=== PATIENT | female | born 1970 | race Caucasian/White ===

== ENCOUNTER → 2017-11-26 | Outpatient (CLI) | payer OTHER ==
[~2017-11-26] MED LIST: ASPI81CH PO; ATOR10; FENO67; HYDACE5 PO; LEVSOD100; LEVSOD112 PO; LOVA20 PO; Lisinopril2.5 MG; METF500 PO; PARO10 PO; RAMI1.25; RANI150 PO; WARF2.5
== END | disposition home or self-care (01) ==
LOC: LAB SRC 06:35
DX: E11.9 Type 2 diabetes mellitus without complications (principal)
CPT/HCPCS: 82043

== ENCOUNTER 2022-01-05 11:15 | Inpatient (IN) | payer OTHER ==
[~2022-01-05] VITALS: Ht 134.6 cm; Wt 63.2 kg
[~2022-01-05 11:15] MED LIST changes: -Lisinopril2.5 MG; +Lisinopril2.5 MG PO
[2022-01-05] MEDS ORDERED: FENO160 PO (11:51)
[2022-01-05] MEDS ORDERED: EUTHYROX50 MC1 PO (11:51)
[2022-01-05 12:08] LABS: BASOPHILS PERCENT AUTO 1 % (0-2); EOSINOPHILS ABSOLUTE AUTO 0.03 K/mm3 (0.00-0.68); EOSINOPHILS PERCENT AUTO 0 % (0-6); Hematocrit 39.7 % (33.0-51.0); Hemoglobin 12.9 g/dL (11.5-16.0); IMMATURE GRAN ABSOLUTE AUTO 0.16 K/mm3 (0.00-0.10); IMMATURE GRAN PERCENT AUTO 2 % (0-1); LYMPHOCYTES ABSOLUTE AUTO 1.23 K/mm3 (0.84-5.20); LYMPHOCYTES PERCENT AUTO 15 % (21-46); MONOCYTES ABSOLUTE AUTO 0.84 K/mm3 (0.16-1.47); MONOCYTES PERCENT AUTO 10 % (4-13); Mean Corpuscular HGB 32.3 pg (26.0-34.0); Mean Corpuscular HGB Conc 32.5 g/dL (31.5-36.5); Mean Corpuscular Volume 100 fL (80-100); Mean Platelet Volume 10.8 fL (9.1-12.4); NEUTROPHILS ABSOLUTE AUTO 6.08 K/mm3 (1.96-9.15); NEUTROPHILS PERCENT AUTO 72 % (41-73); Platelet Count 218 K/mm3 (150-400); RDW Coefficient Variation 13.4 % (11.7-14.2); RDW Standard Deviation 49.2 fL (35.1-46.3); Red Blood Cell Count 3.99 M/mm3 (3.80-5.20); White Blood Cell Count 8.44 K/mm3 (4.00-11.30)
[2022-01-05 12:36] LABS: Albumin, Blood 3.4 g/dL (3.4-5.0); Albumin/Globulin Ratio 0.7 (0.8-1.8); Bilirubin, Total 0.5 mg/dL (0.1-1.0); Bun/Creatinine Ratio 16.2 (12.0-20.0); Calcium, Blood 9.3 mg/dL (8.5-10.1); Creatinine, Blood 0.99 mg/dL (0.40-1.00); Globulin, Blood 4.7 g/dL (2.2-4.0); Potassium, Blood 4.1 mmol/L (3.5-5.5); Total Protein, Blood 8.1 g/dL (6.4-8.2)
[2022-01-05 13:15] LABS: Influenza A, PCR NEGATIVE (NEGATIVE); Influenza B, PCR NEGATIVE (NEGATIVE); Resp Syncytial Virus, PCR NEGATIVE (NEGATIVE); SARS-Cov-2 (COVID-19) PCR, MMC NEGATIVE (NEGATIVE)
[2022-01-05 14:38] LABS: Anti-Xa UFH, PHA Monitoring <0.10 IU/mL; International Normalized Ratio 1.13; Prothrombin Time Results 11.8 Sec (9.7-11.5)
[2022-01-05 15:01] LABS: CHOL/HDL RATIO 3.7; Cholesterol 174 mg/dL (50-200); HDL Cholesterol 47 mg/dL (>39); LDL/HDL RATIO 2.2; Low Density Lipoprotein Chol 104 mg/dL (0-110); Triglycerides 113 mg/dL (30-160); Very Low Density Lipoprot Chol 22 mg/dL (6-32)
--- NOTE | 2022-01-05 17:32 | NUR ---
SHIFT SUMMARY; ASSUMED CARE FROM ED. BROUGHT TO UNIT VIA GURNEY, SLID TO BED WITH SLIDER SHEET. HEPARIN INFUSING AT 15UNITS/HR ON ARRIVAL. LASIX GIVEN PRIOR TO ARRIVAL, ATTENDS SOILED HEAVILY IN URINE. MCDANIELS PLACED. SISTER WHO IS CAREGIVER AT BEDSIDE. 4L 02 VIA NC, VSS, HX OF DOWN SYNDROME AND PREVIOUS CVA. RIGHT SIDE DEFICETS FROM THE PREVIOUS CVA. RIGHT LEG WEAK, RIGHT ARM CONTRACTED. ORIENTED TO SELF AND SITUATION. WILL CONTINUE TO MONITOR AND TREAT UNTIL CHANGE OF SHIFT.
[2022-01-05] MEDS ORDERED: THERA-D2000 UNIT PO (19:27)
[2022-01-05] MEDS ORDERED: DOCU100 PO (19:28)
[2022-01-06 03:57] LABS: BASOPHILS PERCENT AUTO 1 % (0-2); EOSINOPHILS PERCENT AUTO 1 % (0-6); Hematocrit 40.3 % (33.0-51.0); Hemoglobin 13.4 g/dL (11.5-16.0); IMMATURE GRAN ABSOLUTE AUTO 0.12 K/mm3 (0.00-0.10); IMMATURE GRAN PERCENT AUTO 1 % (0-1); LYMPHOCYTES ABSOLUTE AUTO 1.18 K/mm3 (0.84-5.20); LYMPHOCYTES PERCENT AUTO 9 % (21-46); MONOCYTES ABSOLUTE AUTO 0.85 K/mm3 (0.16-1.47); MONOCYTES PERCENT AUTO 7 % (4-13); Mean Corpuscular HGB 32.2 pg (26.0-34.0); Mean Corpuscular HGB Conc 33.3 g/dL (31.5-36.5); Mean Corpuscular Volume 97 fL (80-100); Mean Platelet Volume 10.6 fL (9.1-12.4); NEUTROPHILS ABSOLUTE AUTO 10.56 K/mm3 (1.96-9.15); NEUTROPHILS PERCENT AUTO 82 % (41-73); NRBC ABSOLUTE 0.03 K/mm3 (0.00-0.02); NRBC Auto 0.2 /100 WBC (0.0-0.2); Platelet Count 237 K/mm3 (150-400); RDW Coefficient Variation 13.3 % (11.7-14.2); RDW Standard Deviation 47.6 fL (35.1-46.3); Red Blood Cell Count 4.16 M/mm3 (3.80-5.20); White Blood Cell Count 12.91 K/mm3 (4.00-11.30)
[2022-01-06 04:12] LABS: Anti-Xa UFH, PHA Monitoring 0.27 IU/mL
[2022-01-06 04:13] LABS: Bun/Creatinine Ratio 16.1 (12.0-20.0); Calcium, Blood 9.5 mg/dL (8.5-10.1); Creatinine, Blood 1.12 mg/dL (0.40-1.00)
--- NOTE | 2022-01-06 11:03 | NUR ---
HEPARIN DC'D PER ORDERS.
--- NOTE | 2022-01-06 17:48 | NUR ---
SHIFT SUMMARY; ASSUMED CARE AT 0700. SLEEPS MOST OF DAY, ARROUSABLE TO VERBAL STIMULI. ALERT AND ORIENTED TO BASELINE PER SISTER. HX OF DOWNS WITH SLIGHT DEMENTIA. COOPERATIVE WITH CARE. MCDANIELS DRAINING CLEAR YELLOW URINE TO GRAVITY BAG. MOVES MOVES ON GURNEY INDEPENDANTLY. RIGHT HAND CONTRACTOR FROM PREVIOUS CVA. HEPARIN DC'D TODAY, VSS, ECHO COMPLETE. 5L 02 VIA NC TO MAINTAIN SATS IN LOW 90'S. NO ACUTE MEDICAL CHANGES, WILL CONTINUE TO MONITOR AND TREAT UNTIL CHANGE OF SHIFT.
--- NOTE | 2022-01-06 20:34 | NUR ---
PT TO RADIOLOGY FOR CT PE PROTOCOL. 6 LPM NASAL CANNULA VIA O2 TANK. PRE-PROCEDURE ATIVAN ADMINISTERED ORDRED
--- NOTE | 2022-01-07 01:20 | NUR ---
NOTIFIED MD BROWN OF PATIENT'S LOW BLOOD PRESSURES, 70S-80S SYSTOLIC WITH MAPS 54 - 70. PT RECEIVED 80 MG IV LASIX DURING THE DAY, REPORTED POOR PO INTAKE, NET I&Os -1550. PT RECENTLY DIAGNOSED WITH SADDLE PE AND MULTIPLE EMBOLI TO BILATERAL LUNGS PER CT PE PROTOCOL COMPLETED EARLIER THIS SHIFT. HEPARIN DRIP INFUSING ORDERED. PT DOES NOT APPEAR TO BE IN ANY RESPIRATORY DISTRESS, RESTING COMFORTABLY IN BED, BREATHING MUCH LESS LABORED THAN MY ASSESSMENT OF SAME ON THE GARMENT LOOPER OF 01/05/2022. CURRENTLY ON 5 - 6 LPM NASAL CANNULA. ECHO COMPLETED 01/06/22 SHOWED NO EVIDENCE OF PLEURAL EFFUSION, TRIVIAL PERICARDIAL EFFUSION, EF OF 65-70%, MODERATE ENLARGEMENT OF THE RIGHT ATRIUM AND VENTRICLE, AND SOME MILD DIASTOLIC DYSFUNCTION. ORDERS RECEIVED FOR 250 ML BOLUS OF NORMAL SALINE, WIDE OPEN.
[2022-01-07 05:01] LABS: BASOPHILS ABSOLUTE AUTO 0.11 K/mm3 (0.00-0.23); BASOPHILS PERCENT AUTO 1 % (0-2); EOSINOPHILS ABSOLUTE AUTO 0.14 K/mm3 (0.00-0.68); EOSINOPHILS PERCENT AUTO 2 % (0-6); Hematocrit 40.6 % (33.0-51.0); Hemoglobin 13.3 g/dL (11.5-16.0); IMMATURE GRAN ABSOLUTE AUTO 0.12 K/mm3 (0.00-0.10); IMMATURE GRAN PERCENT AUTO 1 % (0-1); LYMPHOCYTES ABSOLUTE AUTO 1.25 K/mm3 (0.84-5.20); LYMPHOCYTES PERCENT AUTO 14 % (21-46); MONOCYTES ABSOLUTE AUTO 0.93 K/mm3 (0.16-1.47); MONOCYTES PERCENT AUTO 10 % (4-13); Mean Corpuscular HGB 32.4 pg (26.0-34.0); Mean Corpuscular HGB Conc 32.8 g/dL (31.5-36.5); Mean Corpuscular Volume 99 fL (80-100); Mean Platelet Volume 10.7 fL (9.1-12.4); NEUTROPHILS ABSOLUTE AUTO 6.48 K/mm3 (1.96-9.15); NEUTROPHILS PERCENT AUTO 72 % (41-73); Platelet Count 230 K/mm3 (150-400); RDW Coefficient Variation 13.4 % (11.7-14.2); RDW Standard Deviation 48.9 fL (35.1-46.3); White Blood Cell Count 9.03 K/mm3 (4.00-11.30)
[2022-01-07 05:21] LABS: Bun/Creatinine Ratio 18.4 (12.0-20.0); Calcium, Blood 9.4 mg/dL (8.5-10.1); Creatinine, Blood 1.03 mg/dL (0.40-1.00); Potassium, Blood 3.6 mmol/L (3.5-5.5)
--- NOTE | 2022-01-07 17:11 | NUR ---
PT BACK FROM HAND SIZER. PT RESPONDING TO VERBAL STIMULI; QUICKLY FALLING BACK TO SLEEP. FLOW STASIS CLOSURE DEVICE IN PLACE. SMALL AMOUNT OF BLOOD NOTED IN GROIN UNDER DRESSING. RIGHT GROIN SITE IS SOFT, NONTENDER, NO BRUISING OR ACTIVE BLEEDING NOTED. WILL CONTINUE TO MONITOR.
--- NOTE | 2022-01-07 17:16 | NUR ---
SHIFT SUMMARY PT RESPONDING TO VERBAL STIMULI, ORIENTED TO SELF AND FAMILY. PT REPOSITIONED FOR COMFORT DURING SHIFT. NO S/SX OF DISTRESS NOTED. SPO2 DROPPED INTO 86-88%, TITRATED FROM 6L O2 VIA NC TO 10L O2 VIA NC. BP SOFT; TELE SR 70-80'S. RIGHT GROIN SITE IN PLACE; SEE PREVIOUS NOTE. OTHER VSS. NO OTHER ACUTE CHANGES NOTED DURING SHIFT. WILL CONTINUE TO MONITOR.
--- NOTE | 2022-01-07 20:38 | NUR ---
CARE ASSUMPTION: RECEIVED REPORT FROM MILKA BACA RN. PATIENT AWAKE IN BED, ANGIO SITE WNL. VERIFIED AND RESTARTED HEPARIN DRIP. SISTER SHMUEL CALLED AND AND WAS UPDATED ON PATIENT'S STATUS. PATIENT SLEPT FOR "TWO AND A HALF DAYS" BUT IS CURRENTLY AWAKE WITH ALL SIDE RAILS UP.
--- NOTE | 2022-01-08 05:33 | NUR ---
SHIFT SUMMARY: PATIENT'S ANGIO SITE WNL - NO TENDERNESS, SWELLING, OR BLEEDING AT SITE AND STRONG DISTAL PULSES. BPS SOFT, O2 SATS 88-97% ON 8L HI-FLOW NC. PATIENT DOES PULL NC OFF OCCASIONALLY, WHICH RESULTS IN MID-80 SATURATIONS. HEPARIN RUNNING PER PHARMACY RATE. WILL CONTINUE TO MONITOR AND REPORT TO ONCOMING RN.
--- NOTE | 2022-01-08 14:49 | NUR ---
Received referral from nurse before and after school daycare worker (Sharlene Milton) on 01/07/2022. Patient is to discharge with orders for home health and elected [facility]. Due to patient's cognitive abilities, contacted patients sister ([address]) at number provided on demographic sheet to further discuss the above. Patient's sister is agreeable to the above. Discussed homebound status definition with patient's sister. Patient's sister verbalized understanding. Discussed what home health is vs what it is not (in home caregivers/housekeeping). Patient's sister verbalized understanding. Discussed the next steps in the process of an initial assessment to determine frequency of visits. Again patient's sister verbalized understanding. Offered a chance for patient's sister to ask questions regarding the above of which there were none. At this time patient has no discharge orders entered. Will continue to monitor and follow for discharge. Yuliana [place] Referral Liaison
--- NOTE | 2022-01-08 16:57 | NUR ---
SHIFT SUMMARY PT RESPONDING TO VERBAL STIMULI THIS AM, MORE AWAKE THIS AFTERNOON. PT ABLE TO HAVE SOME PO INTAKE. NO S/SX OF DISTRESS NOTED, WHEN ASKED, PT DENIES PAIN, NAUSEA AND DIZZINESS. BP SOFT BUT STABLE, HR SINUS 70'S. DR BEATTY TO BEDSIDE THIS AM, REMOVED THE FLOW STATIS CLOSURE DEVICE AND PLACED STERISTRIP. STARTED THIS AM ON 8L O2 VIA NC, TITRATED DOWN T/O SHIFT TO 3L O2 VIA NC. OTHER VSS. NO OTHER ACUTE CHANGES NOTED. WILL CONTINUE TO MONTIOR UNTIL REPORT GIVEN TO ONCOMING RN.
--- NOTE | 2022-01-09 06:03 | NUR ---
ACCURACY EXPERT SUMMARY PT IS ALERT TO SELF AND COMMUNICATES WITH STAFF MAINLY USING YES OR NO TO ANSWER QUESTIONS. O2 SATS >91% ON 1L NC THIS SHIFT ALTHOUGH PT REMAINS TACHYPNEIC. BP SOFT THIS SHIFT BUT STABLE. PT AFEBRILE. PT HAS MCDANIELS CATHETER PRODUCING 300ML DARK ABIGAIL URINE THIS SHIFT. PT SLEEPING COMFORTABLY FOR MAJORITY OF THE SHIFT. PT REPOSITIONED IN BED THROUGHOUT THE SHIFT. WILL REPORT TO ONCOMING RN.
--- NOTE | 2022-01-09 17:02 | NUR ---
SHIFT SUMMARY PT ALERT FOR MAJORITY OF SHIFT, ORIENTED TO PERSON, SURROUNDING, FAMILY AND FOLLOWING DIRECTIIONS. NO S/SX OF DISTRESS NOTED. UP WITH PHYSICAL THERAPY WITH SBA ASSIST, WITH CUSTODIAL SERVICES MANAGER PT 2-3 PERSON ASSIST. PT DENIES PAIN, CHEST PAIN/PRESSURE, SOB, NASUEA AND DIZZINESS. SPO2 >90% T/O SHIFT, TITRATED TO RA. PT BP SOFT THIS AFTERNOON AND EVENING, NOTIFIED DR MAGUIRE, NEW ORDERS FOR BOLUS THIS AFTERNOON, NO NEW ORDERS THIS EVENING. OTHER VSS. NO OTHER ACUTE CHANGES NOTED DURING SHIFT. WILL CONTINUE TO MONITOR.
--- NOTE | 2022-01-10 05:50 | NUR ---
MACHINIST BRAKE SUMMARY PT IS ALERT AND MUCH MORE AWAKE THIS SHIFT COMPARED TO PREVIOUS NIGHT. O2 SATS >90% ON RM AIR HOWEVER THE PT DID REQUIRE 1L NC WHILE ASLEEP FOR O2 SATS >88%. BP WNL AND STABLE THIS SHIFT. PT IRRIATABLE THIS SHIFT AND NONCOMPLIANT WITH CARE SHE FOUGHT REPOSITIONING AND VITAL SIGN CHECKS. PT AWAKE FOR MOST OF THE SHIFT BUT DENYING ANY PAIN OR NAUSEA. WILL REPORT TO ONCOMING RN.
--- NOTE | 2022-01-10 07:59 | NUR ---
Pt is awake, sometimes answers questions, other times she does not. Vital signs checked, noted stable. She was repositioned up in bed upright for breakfast with COLD STORAGE SUPERVISOR assisting her for the meal. She appears cheerful, cooperative, and not anxious.
--- NOTE | 2022-01-10 08:55 | NUR ---
Dr. Reyes here in room, rounded on pt. Pt is eating breakfast, repositioned to high beaulieu's position for better ease of swallowing. Spo2 90% on room air while eating.
--- NOTE | 2022-01-10 11:12 | NUR ---
NOTED while sleeping, continuous oximetry reading 86-88% while on room air. Caregiver present states that she was prescribed a CPAP years ago, but now that she has had a stroke and has dementia she does not tolerate the CPAP mask, neither does she tolerate nasal cannula. However, caregiver also states that the pt has never been presribed any oxygen at home. Intolerance of nasal cannula is her observation of the pt in the past few days while an inpatient. Caregiver states that the pt lived with her mother until the parent , and now pt lives with her sister, and has occasional caregivers for activity. Caregiver also states that the pt had been on coumadin after her stroke, but that for reasons unknown to her it was discontinued by the PCP and the pt was only taking aspirin.
[2022-01-10] MEDS ORDERED: ELIQUIS5 M2 PO (15:12)
[2022-01-10] MEDS ORDERED: ELIQUIS5 M4 PO (15:14)
--- NOTE | 2022-01-10 15:35 | NUR ---
Patient now has discharge orders entered. Gathered all supporting documentation for referral (face sheet, face to face, med list, H&P, and most recent PT assessment) and sent to [facility] for review. No further interventions required. Yuliana [place] Referral Liaison
--- NOTE | 2022-01-10 16:23 | NUR ---
Pt's sister Liberty was educated about the pt's discharge. New medications, instructions, home health following, follow up appointments with PCP, home oxygen and plan for set up once the pt is home. IV was dc'd. Pt was assisted to her own wheelchair by PCU staff, then taken out to private van driven by pt's sister, Liberty.
== END 2022-01-10 16:02 | disposition home health service (06) | DRG 163 ==
LOC: ER 11:15 → PCU 14:47
PROVIDERS: Emergency Medicine; Family Medicine; ADMIT Hospitalist
PROC: 02CR3ZZ Extirpation of Matter from Left Pulmonary Artery, Percutaneous Approach (ICD-10-PCS; principal; 2022-01-08)
PROC: 02CQ3ZZ Extirpation of Matter from Right Pulmonary Artery, Percutaneous Approach (ICD-10-PCS; 2022-01-08)
DX: I26.02 Saddle embolus of pulmonary artery with acute cor pulmonale (principal); J96.01 Acute respiratory failure with hypoxia; G81.91 Hemiplegia, unspecified affecting right dominant side; I82.431 Acute embolism and thrombosis of right popliteal vein; I95.9 Hypotension, unspecified; E03.9 Hypothyroidism, unspecified; E78.5 Hyperlipidemia, unspecified; Z20.822 Contact with and (suspected) exposure to COVID-19; I50.811 Acute right heart failure; F03.90 Unspecified dementia, unspecified severity, without behavioral disturbance, psychotic disturbance, mood disturbance, and anxiety; Q90.9 Down syndrome, unspecified; Z98.890 Other specified postprocedural states; Z79.899 Other long term (current) drug therapy; Z79.890 Hormone replacement therapy; Z79.82 Long term (current) use of aspirin
CPT/HCPCS: 0241U; 36415; 37184; 37185; 71045; 71260; 75743; 75820; 75825; 76937; 80048; 80053; 80061; 83036; 83605; 83880; 84145; 84443; 84484; 85025; 85520; 85610; 85730; 92610; 93005; 93010; 93306; 93970; 94761; 94762; 96365; 96375; 97162; 97166; 97530; 99152; 99153; 99285-25; A9270; C1751; C1769; C1887; C1894; J1644; J1940; J2060; J2250; J3010; J7030; J7040; J7050; J7120; Q9967

== ENCOUNTER 2022-01-30 15:03 | Day surgery (SDC) | payer OTHER ==
[~2022-01-30 15:03] MED LIST changes: +DOCU100 PO; +ELIQUIS5 M2 PO; +ELIQUIS5 M4 PO; +EUTHYROX50 MC1 PO; +FENO160 PO; +THERA-D2000 UNIT PO
[2022-01-30] MEDS ORDERED: METF500C PO (16:42)
[2022-01-30 17:12] LABS: Source, Urine Straight Cath
[2022-01-30 17:44] LABS: Appearance, Urine Cloudy (Clear); Bilirubin, Urine Neg (Neg); Blood, Urine 2+ (Neg); Color, Urine Yellow (P-Yellow); Glucose Qualitative, Urine Neg (Neg); Ketones, Urine Neg (Neg); Leukocyte Esterase, Urine 3+ (Neg); Nitrite, Urine Neg (Neg); Protein, Urine 2+ (Neg); Specific Gravity, Urine 1.015 (1.003-1.022); Urobilinogen, Urine NORM (Normal)
[2022-01-30 18:14] LABS: Bacteria Many /hpf; Red Blood Cells, Urine 0-2 /hpf (0-2); Squamous Epithelial Cells Not Seen /hpf (Few); White Blood Cells, Urine TNTC /hpf (0-5)
== END 2022-01-30 16:38 | disposition home or self-care (01) ==
LOC: ATC 15:03
PROVIDERS: Nurse Practitioner Family
DX: R30.0 Dysuria (principal); R82.90 Unspecified abnormal findings in urine
CPT/HCPCS: 81001; P9612

== ENCOUNTER 2022-04-01 14:04 | Emergency (ER) | payer OTHER ==
[~2022-04-01] VITALS: Ht 157.5 cm; Wt 70.3 kg
[~2022-04-01 14:04] MED LIST changes: +METF500C PO
[2022-04-01 14:31] LABS: BASOPHILS ABSOLUTE AUTO 0.11 K/mm3 (0.00-0.23); BASOPHILS PERCENT AUTO 3 % (0-2); EOSINOPHILS ABSOLUTE AUTO 0.08 K/mm3 (0.00-0.68); EOSINOPHILS PERCENT AUTO 2 % (0-6); Hematocrit 41.1 % (33.0-51.0); Hemoglobin 13.4 g/dL (11.5-16.0); IMMATURE GRAN ABSOLUTE AUTO 0.03 K/mm3 (0.00-0.10); IMMATURE GRAN PERCENT AUTO 1 % (0-1); LYMPHOCYTES ABSOLUTE AUTO 0.78 K/mm3 (0.84-5.20); LYMPHOCYTES PERCENT AUTO 21 % (21-46); MONOCYTES ABSOLUTE AUTO 0.48 K/mm3 (0.16-1.47); MONOCYTES PERCENT AUTO 13 % (4-13); Mean Corpuscular HGB 31.7 pg (26.0-34.0); Mean Corpuscular HGB Conc 32.6 g/dL (31.5-36.5); Mean Corpuscular Volume 97 fL (80-100); Mean Platelet Volume 10.2 fL (9.1-12.4); NEUTROPHILS PERCENT AUTO 61 % (41-73); Platelet Count 333 K/mm3 (150-400); RDW Coefficient Variation 14.5 % (11.7-14.2); RDW Standard Deviation 51.5 fL (35.1-46.3); Red Blood Cell Count 4.23 M/mm3 (3.80-5.20); White Blood Cell Count 3.78 K/mm3 (4.00-11.30)
[2022-04-01 14:49] LABS: Albumin, Blood 3.4 g/dL (3.4-5.0); Albumin/Globulin Ratio 0.8 (0.8-1.8); Bilirubin, Total 0.3 mg/dL (0.1-1.0); Bun/Creatinine Ratio 18.7 (12.0-20.0); Calcium, Blood 9.5 mg/dL (8.5-10.1); Creatinine, Blood 0.8 mg/dL (0.40-1.00); Globulin, Blood 4.5 g/dL (2.2-4.0); Potassium, Blood 4.1 mmol/L (3.5-5.5); Total Protein, Blood 7.9 g/dL (6.4-8.2)
[2022-04-01 15:59] LABS: Source, Urine Clean Catch
[2022-04-01 16:07] LABS: Appearance, Urine Hazy (Clear); Bilirubin, Urine Neg (Neg); Blood, Urine 1+ (Neg); Color, Urine Yellow (P-Yellow); Glucose Qualitative, Urine Neg (Neg); Ketones, Urine Neg (Neg); Leukocyte Esterase, Urine Neg (Neg); Nitrite, Urine Neg (Neg); Protein, Urine Neg (Neg); Urobilinogen, Urine NORM (Normal)
[2022-04-01 17:16] LABS: Bacteria Mod /hpf; Granular Casts 0-2 /lpf (0); Mucus Light (0-Heavy); Squamous Epithelial Cells Many /hpf (Few); White Blood Cells, Urine 0-2 /hpf (0-5)
[2022-04-01] MEDS ORDERED: CEPH500 PO (18:34)
== END 2022-04-01 19:00 | disposition home or self-care (01) ==
LOC: ER 14:04
PROVIDERS: Physician Assistant
DX: N39.0 Urinary tract infection, site not specified (principal); R73.03 Prediabetes; Q90.9 Down syndrome, unspecified; Z88.8 Allergy status to other drugs, medicaments and biological substances; Z79.899 Other long term (current) drug therapy; Z79.01 Long term (current) use of anticoagulants
CPT/HCPCS: 36415; 71045; 80053; 81001; 83690; 85025; A9270; J7030

== ENCOUNTER 2022-04-03 12:05 | Inpatient (IN) | payer OTHER ==
[~2022-04-03] VITALS: Ht 152.4 cm; Wt 63.1 kg
[~2022-04-03 12:05] MED LIST changes: +CEPH500 PO
[2022-04-03 13:10] LABS: BASOPHILS ABSOLUTE AUTO 0.13 K/mm3 (0.00-0.23); BASOPHILS PERCENT AUTO 1 % (0-2); EOSINOPHILS ABSOLUTE AUTO 0.15 K/mm3 (0.00-0.68); EOSINOPHILS PERCENT AUTO 1 % (0-6); Hematocrit 41.7 % (33.0-51.0); Hemoglobin 13.5 g/dL (11.5-16.0); IMMATURE GRAN ABSOLUTE AUTO 0.05 K/mm3 (0.00-0.10); IMMATURE GRAN PERCENT AUTO 0 % (0-1); LYMPHOCYTES ABSOLUTE AUTO 1.16 K/mm3 (0.84-5.20); LYMPHOCYTES PERCENT AUTO 10 % (21-46); MONOCYTES ABSOLUTE AUTO 0.59 K/mm3 (0.16-1.47); MONOCYTES PERCENT AUTO 5 % (4-13); Mean Corpuscular HGB 31.5 pg (26.0-34.0); Mean Corpuscular HGB Conc 32.4 g/dL (31.5-36.5); Mean Corpuscular Volume 97 fL (80-100); Mean Platelet Volume 10.2 fL (9.1-12.4); NEUTROPHILS ABSOLUTE AUTO 9.88 K/mm3 (1.96-9.15); NEUTROPHILS PERCENT AUTO 83 % (41-73); Platelet Count 326 K/mm3 (150-400); RDW Coefficient Variation 14.6 % (11.7-14.2); RDW Standard Deviation 52.7 fL (35.1-46.3); Red Blood Cell Count 4.28 M/mm3 (3.80-5.20); White Blood Cell Count 11.96 K/mm3 (4.00-11.30)
[2022-04-03 13:21] LABS: Albumin, Blood 3.3 g/dL (3.4-5.0); Albumin/Globulin Ratio 0.8 (0.8-1.8); Bilirubin, Total 0.5 mg/dL (0.1-1.0); Calcium, Blood 9.8 mg/dL (8.5-10.1); Creatinine, Blood 0.94 mg/dL (0.40-1.00); Globulin, Blood 4.2 g/dL (2.2-4.0); Potassium, Blood 4.4 mmol/L (3.5-5.5); Total Protein, Blood 7.5 g/dL (6.4-8.2)
[2022-04-03 15:09] LABS: Base Excess Venous 2.1 mmol/L; Bicarbonate Venous 25.2 mmol/L (24.0-30.0); PCO2 Venous 52.5 mmHg (38-42); pH Blood Venous 7.33 (7.34-7.37)
[2022-04-03 15:51] LABS: Influenza A, PCR NEGATIVE (NEGATIVE); Influenza B, PCR NEGATIVE (NEGATIVE); Resp Syncytial Virus, PCR NEGATIVE (NEGATIVE); SARS-Cov-2 (COVID-19) PCR, MMC NEGATIVE (NEGATIVE)
--- NOTE | 2022-04-03 17:48 | NUR ---
ADMIT FROM ED, SLID TO BED FROM ED [facility]. HX OF DOWN SYDROME. SCREAMS OUT WHEN TOUCHED. VSS, 92% ON RA. L/S DIM T/O. CAREGIVER AT BEDSIDE WHO PROVIDES SOME MEDICAL HX. LR INFUSING WO PER ED ORDER. ATTENDS CHANGED ON ARRIVAL FROM ED AND PLACED IN GOWN. TELE PLACED FOR MONITORING. WILL MONITOR AND TREAT UNTIL CHANGE OF SHIFT.
[2022-04-04 05:15] LABS: BASOPHILS ABSOLUTE AUTO 0.07 K/mm3 (0.00-0.23); BASOPHILS PERCENT AUTO 1 % (0-2); EOSINOPHILS ABSOLUTE AUTO 0.24 K/mm3 (0.00-0.68); EOSINOPHILS PERCENT AUTO 4 % (0-6); Hemoglobin 11.1 g/dL (11.5-16.0); IMMATURE GRAN ABSOLUTE AUTO 0.03 K/mm3 (0.00-0.10); IMMATURE GRAN PERCENT AUTO 1 % (0-1); LYMPHOCYTES ABSOLUTE AUTO 1.19 K/mm3 (0.84-5.20); LYMPHOCYTES PERCENT AUTO 22 % (21-46); MONOCYTES ABSOLUTE AUTO 0.38 K/mm3 (0.16-1.47); MONOCYTES PERCENT AUTO 7 % (4-13); Mean Corpuscular HGB 31.8 pg (26.0-34.0); Mean Corpuscular HGB Conc 32.6 g/dL (31.5-36.5); Mean Corpuscular Volume 97 fL (80-100); Mean Platelet Volume 10.5 fL (9.1-12.4); NEUTROPHILS ABSOLUTE AUTO 3.49 K/mm3 (1.96-9.15); NEUTROPHILS PERCENT AUTO 65 % (41-73); Platelet Count 249 K/mm3 (150-400); RDW Coefficient Variation 14.7 % (11.7-14.2); RDW Standard Deviation 52.7 fL (35.1-46.3); Red Blood Cell Count 3.49 M/mm3 (3.80-5.20)
[2022-04-04 05:46] LABS: Albumin, Blood 2.6 g/dL (3.4-5.0); Albumin/Globulin Ratio 0.8 (0.8-1.8); Bilirubin, Total 0.4 mg/dL (0.1-1.0); Bun/Creatinine Ratio 15.7 (12.0-20.0); Calcium, Blood 8.8 mg/dL (8.5-10.1); Creatinine, Blood 0.83 mg/dL (0.40-1.00); Globulin, Blood 3.4 g/dL (2.2-4.0); Magnesium, Blood 2.1 mg/dL (1.6-2.4); Potassium, Blood 3.7 mmol/L (3.5-5.5)
--- NOTE | 2022-04-04 06:40 | NUR ---
NO ACUTE EVENTS OVERNIGHT. LUNG SOOUNDS REMAIN COARE THROUGHOUT. SLIGHT DYSPNEA WITH EXERTION, ABSENT TACHYPNEA. OXYGEN WEANED FROM 2 LPM TO 1 LPM NASAL CANNULA. PT DOES SNORE AND HAS APNEIC PERIODS DURING SLEEP. INCONTINENT OF URINE AND STOOL. PT IS SOMEWHAT RESISTANT TO CARE. SHE YELLS OUT AND STIFFENS UP WHEN PERFORMING KAREEM CARE AND REPOSITIONING. HER VOCABULARY IS LIMITED AND SHE IS DIFFICULT TO UNDERSTAND AT TIMES. ALSO OF NOTE: PT CHEWS ALL OF HER PILLS.
--- NOTE | 2022-04-04 17:58 | NUR ---
SHIFT SUMMARY; ASSUMED CARE AT 0700. SLEEPING BUT WAKES TO VERBAL STIMULI. ALERT TO SELF AND SURROUNDINGS. HX OF DOWNS, MINIMAL VERBAL CONVERSATION. NODS HEAD TO ANSWER QUESTIONS, BASELINE FOR PT PER CAREGIVER WHO IS AT BEDSIDE FOR DAY. FLUIDS DC'D AT 0730 DUE TO COARSE LUNG SOUNDS. DISCUSSED WITH DR. ISAACS. VERBAL ORDER FOR 20MG LASIX IV. INCONTINANT, IN ATTENDS, CHANGED NEEDED. RIGHT HAND CONTRACTED FROM PREVIOUS CVA. MOVES AROUND ON GURNEY, NON AMBULATORY SINCE LAST HOSPITAL STAY PER CAREGIVER. SPEECH EVAL TODAY, 2L 02 VIA NC TO MAINTAIN SATS >92%, VSS, WILL CONTINUE TO MONITOR AND TREAT UNTIL CHANGE OF SHIFT.
--- NOTE | 2022-04-04 20:02 | NUR ---
UPDATE TO FAMILY MEMBER RETURNED CALL TO PATIENT'S SISTER/POA SHMUEL , UPDATE PROVIDED REGARDING PATIENT'S CARE - SWALLOW EVALUATION COMPLETED TODAY, CONCERN THAT PNEUMONIA MAY BE SECONDARY TO ASPIRATION. SHMUEL STATES THAT JOSE ANGEL DOES EAT A PRIMARILY MECHANICAL SOFT DIET WITH MEATS CUT UP INTO SMALL BITES AT HOME, AND THAT SHE HAS NO ISSUES WITH TAKING PILLS. SUPPLEMENTAL OXYGEN NEEDS ARE LESS TODAY. CURRENTLY ON ROOM AIR WHILE AWAKE. I NOTICED LAST NIGHT THAT JOSE ANGEL DOES SNORE AND DID HAVE SOME APNEIC EPISODES. PER SHMUEL, THE SAME OCCURS AT HOME. NO DEFINITIVE DISCHARGE PLANS AT THIS TIME. CARE HAS BEEN DOWNGRADED FROM HIGHER LEVEL OF PCU TO MEDICAL STATUS, WITH NO NEED FOR CONTINUED HEART RATE/RHYTHM MONITORING.
--- NOTE | 2022-04-05 06:25 | NUR ---
NO ACUTE EVENTS OVERNIGHT. WEANED OFF 2 LPM NC TO ROOM AIR WHILE AWAKE. APPLIED 1 LPM NC WHEN JOSE AGNEL FELL ASLEEP. JOSE ANGEL WAS UP MOST OF THE NIGHT AND DID NOT GO TO SLEEP UNTIL CLOSE AFTER 0500 THIS MORNING. VITAL SIGNS REMAIN STABLE. MENTATION IS AT BASELINE. JOSE ANGEL WAS MORE COOPERATIVE WITH CARES OVERNIGHT TONIGHT.
[2022-04-05] MEDS ORDERED: GUAI600T33 PO (13:00)
[2022-04-05] MEDS ORDERED: AZIT500 PO (13:00)
[2022-04-05] MEDS ORDERED: Lotrimin AF113 GM TOP (13:02)
[2022-04-05] MEDS ORDERED: VISBIOME 112.51 EACH PO (13:03)
[2022-04-05] MEDS ORDERED: CEFP200 PO (13:04)
--- NOTE | 2022-04-05 16:40 | NUR ---
DISCHARGE NOTE PT ALERT TO SELF AND BROTHER IN LAW RON UPON DISCHARGE, NEURO STATUS AT BASELINE ACCORDING TO FAMILY. VITAL SIGNS ALSO STABLE UPON DISCHARGE, SPO2 IN 90-93% VIA ROOM AIR. IV IN RIGHT HAND REMOVED BY REGLA RUIZ. DISCHARGE INSTRUCTIONS INCLUDING NEW MEDICATIONS, MECHANICAL SOFT DIET INSTRUCTIONS AND FOLLOW UP APPOINTMENT WITH PCP GIVEN TO [id number]. PT LEFT PCU AT APPROX 1645 VIA WHEELCHAIR AND WAS ESCORTED BY MAXIMILIANO GURROLA CNA AND CAREGIVER THAT WAS AT BEDSIDE. ALL OF PT BELONGINGS INCLUDING DISCHARGE INSTRUCTIONS WERE SENT WITH PT.
== END 2022-04-05 16:38 | disposition home or self-care (01) | DRG 193 ==
LOC: ER 12:05 → PCU 16:12
PROVIDERS: Emergency Medicine; Nurse Practitioner Acute Care; ADMIT Internal Medicine
DX: J18.9 Pneumonia, unspecified organism (principal); G92.8 Other toxic encephalopathy; J96.01 Acute respiratory failure with hypoxia; I69.351 Hemiplegia and hemiparesis following cerebral infarction affecting right dominant side; Z20.822 Contact with and (suspected) exposure to COVID-19; Q90.9 Down syndrome, unspecified; E78.5 Hyperlipidemia, unspecified; E03.9 Hypothyroidism, unspecified; F03.90 Unspecified dementia, unspecified severity, without behavioral disturbance, psychotic disturbance, mood disturbance, and anxiety; R13.10 Dysphagia, unspecified; I10 Essential (primary) hypertension; Z86.711 Personal history of pulmonary embolism; Z79.01 Long term (current) use of anticoagulants; Z79.899 Other long term (current) drug therapy; Z90.89 Acquired absence of other organs; Z79.82 Long term (current) use of aspirin; Z88.8 Allergy status to other drugs, medicaments and biological substances
CPT/HCPCS: 0241U; 36415; 70450; 71045; 80053; 82140; 82803; 83605; 83735; 83880; 84145; 84443; 84484; 85025; 87040; 92610; 93005; 93010; 94761; 96361; 96365; 96375; 99285-25; A9270; J0456; J0696; J1940; J7030; J7040; J7050; J7120